=== PATIENT | female | born 1970 | race Caucasian/White ===

== ENCOUNTER 2022-12-01 11:51 | Emergency (ER) | payer OTHER, MEDICAID ==
[~2022-12-01] VITALS: Ht 165.1 cm; Wt 80.7 kg
[2022-12-01 12:13] VITALS: BP 133/75
[2022-12-01] MEDS ORDERED: ONDANSETRON 4 MG/2 ML VIAL IVP ONE (12:30)
[2022-12-01] MEDS ORDERED: KETOROLAC 15 MG/ML VIAL IVP ONE (12:30)
[2022-12-01] MEDS ORDERED: NACL 0.9% 1,000 ML IV ONE (12:30)
[2022-12-01 13:07] LABS: APPEARANCE,URINE CLEAR (CLEAR); BILIRUBIN,URINE 1+ (NEGATIVE); BLOOD, URINE NEGATIVE (NEGATIVE); COLOR,URINE BROWN (YELLOW); LEUKOCYTE ESTERASE ,URINE NEGATIVE (NEGATIVE); NITRITE, URINE NEGATIVE (NEGATIVE); UGLUCOSE NEGATIVE (NEGATIVE)
--- NOTE | 2022-12-01 14:00 | NUR ---
PT IS RESTING ON STRETCH, CONTINUOUS CARDIAC MONITORING. PT. IS AAOX4, CALM AND COOPERATIVE, VERBALLY RESPONSIVE, AND SHOWS NO SIGNS OF ACUTE RESP DISTRESS. PT STATES SHE STILL HAS A HEADACHE, MD NOTIFIED
[2022-12-01] MEDS ORDERED: ONDANSETRON 4 MG/2 ML VIAL ONE (14:01)
[2022-12-01] MEDS ORDERED: KETOROLAC 15 MG/ML VIAL ONE (14:01)
[2022-12-01 14:35] LABS: BASOPHILS % (AUTO) 0.3 % (0.0-2.0); EOSINOPHILS # (AUTO) 0.1 K/uL (0-0.4); EOSINOPHILS % (AUTO) 1.5 % (0.0-4.0); HEMATOCRIT 39.1 % (36-48); HEMOGLOBIN 12.9 g/dL (12.0-16.0); LYMPHOCYTES # (AUTO) 0.2 K/uL (2.5-16.5); LYMPHOCYTES % (AUTO) 2.2 % (20.5-51.1); MEAN CORPUSCULAR HEMOGLOBIN 27 pg (27-31); MEAN CORPUSCULAR HGB CONC 33 g/dL (33-37); MEAN CORPUSCULAR VOLUME 80.1 fL (80-94); MONOCYTES # (AUTO) 0.2 K/uL (0.8-1.0); MONOCYTES % (AUTO) 2.2 % (1.7-9.3); NEUTROPHILS # (AUTO) 7.2 K/uL (1.8-7.7); NEUTROPHILS % (AUTO) 93.8 % (42.2-75.2); PLATELET COUNT (AUTO) 135 K/uL (140-450); RED BLOOD CELL COUNT(AUTO) 4.88 MIL/uL (4.20-5.40); RED CELL DISTRIBUTION WIDTH 24.5 % (11.6-13.7); WHITE BLOOD COUNT (AUTO) 7.7 K/uL (4.8-10.8)
[2022-12-01 14:49] LABS: ANION GAP 11.3 (8-16); CARBON DIOXIDE 27.5 mmol/L (21-32); CREATININE 0.7 mg/dL (0.6-1.3); POTASSIUM 3.8 mmol/L (3.5-5.1)
[2022-12-01 14:55] LABS: ALBUMIN 3.3 g/dL (3.4-5.0)
[2022-12-01] MEDS ORDERED: DEXAMETHASONE 10 MG/ML VIAL IVP ONE (15:05)
[2022-12-01] MEDS ORDERED: ACET-9496 PO (15:05)
[2022-12-01] MEDS ORDERED: diphenhydrAMINE 50 MG/ML VIAL IVP ONE (15:05)
[2022-12-01] MEDS ORDERED: ACET-10509 PO (15:05)
[2022-12-01] MEDS ORDERED: METOCLOPRAMIDE 10 MG/2 ML INJ VIAL IVP ONE (15:05)
--- NOTE | 2022-12-01 17:30 | NUR ---
PT IS RESTING ON STRETCH, CONTINUOUS CARDIAC MONITORING. PT. IS AAOX4, CALM AND COOPERATIVE, VERBALLY RESPONSIVE, AND SHOWS NO SIGNS OF ACUTE RESP DISTRESS. PENDING LACTIC ACID REDRAW RESULT.
[2022-12-01 18:41] VITALS: BP 114/72
--- NOTE | 2022-12-06 09:15 | NUR ---
2LATE ENTRY -- CONFIRMED WITH NURSE NS INFUSION COMPLETED AT 1330 12/01/22
== END 2022-12-01 18:41 | disposition home or self-care (01) ==
LOC: MED 11:51
DX: R51.9 Headache, unspecified (principal); Z20.822 Contact with and (suspected) exposure to COVID-19; R30.0 Dysuria; R10.30 Lower abdominal pain, unspecified; M54.50 Low back pain, unspecified; R11.2 Nausea with vomiting, unspecified; I10 Essential (primary) hypertension
CPT/HCPCS: 36415; 70450; 80053; 81003; 81025; 83605; 85025; 87426; 87804; 96361; 96374; 96375; 99285; J1100; J1200; J1885; J2405; J2765; 99284